=== PATIENT | female | born 1995 | race Caucasian/White ===

== ENCOUNTER 2017-04-23 16:50 | Emergency (ER) | payer OTHER ==
[2017-04-23 16:56] VITALS: BP 115/71; PULSE 57; RESP 16; TEMP 96.8; O2SAT 95
--- NOTE | 2017-04-23 17:22 | EDPHY ---
H & P Time Seen by Provider: 04/23/17 17:01 HPI/ROS: CHIEF COMPLAINT: Abdominal pain, dysmenorrhea HISTORY OF PRESENT ILLNESS: 22-year-old female presents to the emergency department by private vehicle complaining of dysmenorrhea. The patient started her period yesterday which was normal and on time. Around 230 this afternoon she developed severe lower abdominal pain. She felt that they were like her normal menstrual cramps, however much more severe. It did not localize to the left to the right side. She has not had heavier vaginal bleeding than normal. She has had painful periods in the past although she felt this was more severe. She is not sexually active. She is not concerned about being . She has no urinary symptoms. No back pain. No chest pain or difficulty breathing. She was feeling nauseous when the pain was extreme although no vomiting. She took 400 mg of ibuprofen earlier this afternoon and she is feeling much better. She has a scheduled appointment with an geospatial information scientist next week. REVIEW OF SYSTEMS: Constitutional: No fever, no chills. Eyes: No double or blurry vision. ENT: No sore throat. Respiratory: No cough, no shortness of breath. Cardiac: No chest pain. Gastrointestinal: Abdominal pain as above. No vomiting or diarrhea Genitourinary: No dysuria. Musculoskeletal: No neck or back pain. Skin: No rashes. Neurological: No headache. Past Medical/Surgical History: Negative Social History: Single Smoking Status: Never smoked Physical Exam: General Appearance: Alert, no distress. Afebrile. Eyes: Pupils equal and round. Extraocular motions are all intact. ENT: Mouth: Mucous membranes moist. Respiratory: No wheezing, rhonchi, or rales, lungs are clear to auscultation. Cardiovascular: Regular rate and rhythm. Gastrointestinal: Abdomen is soft and nontender, no masses, no rebound or guarding, bowel sounds normal. No CVA tenderness bilaterally. Genitourinary: Deferred Neurological: Alert and oriented x 3, cranial nerves II through XII grossly intact Skin: Warm and dry, no rashes. Musculoskeletal: Nontender to palpate along the cervical, thoracic or lumbar spine. Neck is supple. Extremities: Full range of motion and no peripheral edema. Psychiatric: Patient is oriented X 3, there is no agitation. Constitutional: Initial Vital Signs Temperature (C) 36.0 C 04/23/17 16:50 Heart Rate 57 L 04/23/17 16:50 Respiratory Rate 16 04/23/17 16:50 Blood Pressure 115/71 04/23/17 16:50 O2 Sat (%) 95 04/23/17 16:50 O2 Delivery Mode Room Air Medical Decision Making ED Course/Re-evaluation: 22-year-old female presents to the emergency department with lower abdominal pain. She is on her 2nd day of her menstrual cycle which was normal in onset yesterday. She currently has minimal pain now. She does not have any localizing pain to the left or the right lower quadrant. She does not have heavy vaginal bleeding. She feels comfortable now. I discussed with the patient and her mother at bedside possibility of endometriosis. Do not think ultrasound is indicated however since the patient does not have localizing pain or really any severe pain currently. She is not having heavy vaginal bleeding. Pelvic exam was deferred. She has a scheduled appointment to have a physical with Dr. Verduzco next week. She was encouraged to return to the emergency department she developed heavy vaginal bleeding, worsening pain, or if she felt worse in any way. Both her mother and patient were comfortable with this plan. I also encouraged to apply warm compresses and to increase her ibuprofen to 600 mg 3 times daily. Differential Diagnosis: Including but not limited to dysmenorrhea, endometriosis, intrauterine , ectopic , ovarian cyst, ovarian torsion, urinary tract infection, pyelonephritis Departure - Departure Disposition: Home, Routine, Self-Care Clinical Impression: Dysmenorrhea Condition: Good Instructions: Dysmenorrhea (ED) Additional Instructions: Ibuprofen 600 mg every 8 hours as needed for pain. Takes medication with food. Warm compresses to her lower abdomen as discussed for pain relief. Return to the emergency department if you developed localizing pain, if you develop heavy vaginal bleeding soaking a pad or a tampon within 1 hour, if you pass out from the pain, or if feel worse in any way. Referrals: Marie Verduzco MD [[facility] [place] Primary Care Provider] - As per Instructions (Keep scheduled appointment with Dr. Verduzco next week.)
== END 2017-04-23 17:31 | disposition home or self-care (01) ==
DX: N94.6 Dysmenorrhea, unspecified (principal)